=== PATIENT | male | born 1980 | race Caucasian/White ===

== ENCOUNTER 2019-02-06 16:20 | Inpatient (IN) | payer OTHER ==
[2019-02-06 17:56] VITALS: BMI 29.3
--- NOTE | 2019-02-06 19:59 | HP ---
CIWA Score - Admission Criteria OASAS Guidelines: Admission for Medically Managed Detox: Requires at least one of the followin. CIWA greater than 12 2. Seizures within the past 24 hours 3. Delirium tremens within the past 24 hours 4. Hallucinations within the past 24 hours 5. Acute intervention needed for co occurring medical disorder 6. Acute intervention needed for co occurring psychiatric disorder 7. Severe withdrawal that cannot be handled at a lower level of care (continued vomiting, continued diarrhea, abnormal vital signs) requiring intravenous medication and/or fluids 8. Admission ROS S - HPI Chief Complaint: Seeking admission to Rehab. 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 Patient reports that he was referred by his outpatient clinic physician, Dr. Cliff Archer. Patient denies past medical history and has psych. history of depression. He denies suicide attempt and suicidal ideation at this time. Patient reports that this is his first admission to [facility] and he reports prior Rehab. admission at [facility]. Patient is unemployed and lives with his and children. Exam Limitations: No Limitations - Ebola screening Have you traveled outside of the country in the last 21 days: No (N) Have you had contact with anyone from an Ebola affected area: No Do you have a fever: No - Review of Systems Constitutional: No Symptoms Reported EENT: reports: No Symptoms Reported Respiratory: reports: No Symptoms reported Cardiac: reports: No Symptoms Reported GI: reports: No Symptoms Reported : reports: No Symptoms Reported Musculoskeletal: reports: No Symptoms Reported Integumentary: reports: No Symptoms Reported Neuro: reports: No Symptoms reported Endocrine: reports: No Symptoms Reported Hematology: reports: No Symptoms Reported Psychiatric: reports: No Sypmtoms Reported, Mood/Affect Appropiate, Orientated x3 Other Systems: Reviewed and Negative Patient History - Patient Medical History Hx Anemia: No Hx Asthma: No Hx Chronic Obstructive Pulmonary Disease (COPD): No Hx Cancer: No Hx Cardiac Disorders: No Hx Congestive Heart Failure: No Hx Hypertension: No Hx Hypercholesterolemia: No HX Cerebrovascular Accident: No Hx Seizures: No Hx Dementia: No Hx Diabetes: No Hx Gastrointestinal Disorders: No Hx Liver Disease: No Hx Genitourinary Disorders: No Hx Sexually Transmitted Disorders: No Hx Renal Disease (ESRD): No Hx Thyroid Disease: No Hx Human Immunodeficiency Virus (HIV): No ( Negative April 2018) Hx Hepatitis C: No Hx Depression: Yes Hx Suicide Attempt: No (Denies suicide attempt / suicidal ideation at this time) Hx Bipolar Disorder: No Hx Schizophrenia: No - Patient Surgical History Past Surgical History: Yes Hx Neurologic Surgery: No Hx Cataract Extraction: No Hx Cardiac Surgery: No Hx Lung Surgery: No Hx Abdominal Surgery: Yes (Gastric bypass 2004) Hx Appendectomy: No Hx Cholecystectomy: No Hx Genitourinary Surgery: No Hx Orthopedic Surgery: No Anesthesia Reaction: No - PPD History Previous Implant?: No (HX OF PPD POSITIVE) Documented Results: Positive w/o proof Implanted On Prior [facility] Admission?: No PPD to be Administered?: No - Reproductive History Patient is a Female of Child Bearing Age (11 -55 yrs old): No (male) - Smoking Cessation Smoking history: Current some day smoker Have you smoked in the past 12 months: Yes Aproximately how many cigarettes per day: 3 Hx Chewing Tobacco Use: No Initiated information on smoking cessation: Yes 'Breaking Loose' booklet given: 02/06/19 - Substance & Tx. History Hx Alcohol Use: No Hx Substance Use: Yes Substance Use Type: Marijuana, Prescribed Hx Substance Use Treatment: Yes ([facility]. [facility]) - Substances abused Other Other (specify): Percocet 30mg tab Substance route: Oral Frequency: Daily Amount used: 10 tabs Age of first use: 31 Date of last use: 01/23/19 Marijuana/Hashish Substance route: Smoking Frequency: Daily Amount used: 1 joint Age of first use: 18 Date of last use: 02/02/19 Admission Physical Exam BHS - Vital Signs Vital Signs: Vital Signs - 24 hr 02/06/19 02/06/19 17:41 19:42 Temperature 98.4 F 98.4 F Pulse Rate 60 60 Respiratory 20 20 Rate Blood Pressure 110/66 110/66 - Physical General Appearance: Yes: Within Normal Limits HEENTM: Yes: Within Normal Limits Respiratory: Yes: Lungs Clear, Normal Breath Sounds, No Respiratory Distress Neck: Yes: Within Normal Limits Breast: Yes: Breast Exam Deferred Cardiology: Yes: Regular Rhythm, Regular Rate Abdominal: Yes: Normal Bowel Sounds, Soft Genitourinary: Yes: Within Normal Limits Back: Yes: Normal Inspection Musculoskeletal: Yes: Within Normal Limits Extremities: Yes: Normal Inspection Neurological: Yes: Within Normal Limits, Alert, Normal Mood/Affect Integumentary: Yes: Warm Lymphatic: Yes: Within Normal Limits - Diagnostic (1) Opioid dependence, uncomplicated Current Visit: Yes Status: Chronic (2) Nicotine dependence Current Visit: Yes Status: Chronic Qualifiers: Nicotine product type: cigarettes Substance use status: uncomplicated Qualified Code(s): F17.210 - Nicotine dependence, cigarettes, uncomplicated (3) Depression Current Visit: Yes Status: Chronic Qualifiers: Depression Type: unspecified Qualified Code(s): F32.9 - Major depressive disorder, single episode, unspecified (4) Marijuana dependence Current Visit: Yes Status: Chronic Cleared for Admission S - Detox or Rehab [facility] Level of Care: Observation Bed Claeared for Rehab Admission: Yes Breathalyzer - Breathalyzer Breathalyzer: 0 Urine Drug Screen - Test Device Lot number: [id number] Expiration date: 10/05/20 - Control Is test valid?: Yes - Results Drug screen NEGATIVE: No Urine drug screen results: THC-Marijuana, BUP-Suboxone Inpatient Rehab Admission - Rehab Decision to Admit Inpatient rehab admission?: Yes - Initial Determination Are CD services needed?: No Free of communicable disease: Yes Not in need of hospitalization: Yes - Rehab Admission Criteria Previous failed treatment: Yes Poor recovery environment: Yes Comorbidities: Yes Lacks judgement: No Patient is meeting Inpatient Rehab admission criteria:: Yes
[2019-02-06] MEDS ORDERED: ACETAMINOPHEN 325 MG TABLET (FP) PO PRN (20:18)
[2019-02-06] MEDS ORDERED: MENTHOL/PHENOL 1 EACH UD MM PRN (20:18)
[2019-02-06] MEDS ORDERED: LOPERAMIDE HCL 2 MG CAPSULE PO PRN (20:18)
[2019-02-06] MEDS ORDERED: guaiFENesin 200 MG/10 ML 10 ML UNIT-DOSE CUPS PO PRN (20:18)
[2019-02-06] MEDS ORDERED: MAG HYDROX/AL HYDROX/SIMETH 30 ML UNIT-DOSE CUP PO PRN (20:18)
[2019-02-06] MEDS ORDERED: P-EPHED 60MG/TRIPROLIDI 2.5MG TABLET PO PRN (20:18)
[2019-02-06] MEDS ORDERED: MAGNESIUM CITRATE 300 ML BOTTLE PO PRN (20:18)
[2019-02-06] MEDS ORDERED: NICOTINE POLACRILEX 2 MG GUM BUC PRN (20:18)
[2019-02-06] MEDS: THIAMINE HCL 100 MG TABLET (FP) PO SCH (21:42)
[2019-02-06] MEDS: BUPRENORPHINE/NALOXONE 8 MG/2 MG FILM PACKET SL SCH (21:43)
[2019-02-06] MEDS ORDERED: MELATONIN 5 MG TABLETS PO PRN (22:00)
[2019-02-07] MEDS: BUPRENORPHINE/NALOXONE 8 MG/2 MG FILM PACKET SL SCH ×3 (06:48→21:22)
[2019-02-07] MEDS: PRENATAL VITAMINS W/ FOLIC ACID TABLET (FP) PO SCH (09:43)
[2019-02-07] MEDS: NICOTINE 14 MG/24 HOURS TOPICAL PATCH TD SCH (09:43)
--- NOTE | 2019-02-07 10:00 | PN ---
[facility] Progress Note Note: Pt is a 38 y/o male with a hx of street percocet and marijuana use disorder and on Suboxone-MAT admitted to rehab. Pt reports was referred from his suboxone doctor dr. Cliff Archer/clinic at [place] [address] [address] [place] [address]/[place], [place] . Denies PMhx but has Psych hx of Depression and on Lexapro and remeron. Pt reports he has a primary care doctor, Dr. Chung on [facility] for medical management. Vital Signs - 24 hr 02/06/19 02/06/19 02/06/19 17:41 19:42 21:30 Temperature 98.4 F 98.4 F 98.1 F Pulse Rate 60 60 49 L Respiratory 20 20 17 Rate Blood Pressure 110/66 110/66 113/71 02/07/19 02/07/19 02/07/19 00:30 03:30 06:51 Temperature 97.9 F Pulse Rate 54 L Respiratory 18 16 18 Rate Blood Pressure 124/81 labs drawn and results pending. A/P New rehab patient Suboxone-MAT Maintain safety follow up with psych consult as ordered.
[2019-02-07 10:15] LABS: ALBUMIN 3.2 g/dl (3.4-5.0); BILIRUBIN,TOTAL 0.5 mg/dL (0.2-1); BLOOD UREA NITROGEN 11.7 mg/dL (7-18); CALCIUM 8.4 mg/dL (8.5-10.1); CREATININE 0.7 mg/dL (0.55-1.3); HEMATOCRIT 32.6 % (35.4-49); HEMOGLOBIN 9.8 GM/dL (11.7-16.9); MCH 20.8 pg (25.7-33.7); MEAN CELL VOLUME 69.3 fl (80-96); MEAN PLT VOLUME 8.9 fl (7.5-11.1); PLATELET COUNT 211 K/MM3 (134-434); POTASSIUM 4.1 mmol/L (3.5-5.1); RDW 16.5 % (11.9-15.9); WHITE BLOOD COUNT 4.3 K/mm3 (4.0-10.0)
--- NOTE | 2019-02-07 11:22 | CONSULT ---
[facility] Psychiatric Consult - Data Date of interview: 02/07/19 Admission source: Dr Cliff Archer from program"[facility]" Identifying data: Mr Brice is a 38 years old male, father of 2 children, unemployed with no source of income, living with and children admitted to this unit on 02/06/19 for inpatient rehabilitation for opioid and cannabis Substance Abuse History: Reports history of percocet and marijuana use. Refer to addiction counselor's summary for further information Medical History: Significant for PPD+ and history of gaastric bypass and orthosurgery for dislocation of right ankle. Smokes 3 cigarettes daily Psychiatric History: Reports that his first psychiatric contact was in his mid 20's when he saw a psychiatrist for depression. Claims that he was treated with only psychotherapy for approximately a year. Reports that his next psychiatric treatment started 9 months ago while at his current outpatient substance abuse program"[facility]", he saw Dr Cliff Archer who diagnosed him with MDD and started on Lexapro and Remeron. He is currently on Lexapro 20 mg/day and Remeron 15 mg/hs. Denies previous psychiatric hospitalization or suicidal attempt. At present, denies experiencing depressive symptoms, S/H ideations. However, reports sleeping poorly. Requests to continue both Lexapro and Remeron as currently prescribed Physical/Sexual Abuse/Trauma History: Denies history of abuse as a child or DV relationship as an adult Mental Status Exam - Mental Status Exam Alert and Oriented to: Time, Place, Person Cognitive Function: Fair Patient Appearance: Well Groomed Mood: Hopeful, Euthymic Affect: Appropriate Patient Behavior: Cooperative Speech Pattern: Clear Voice Loudness: Normal Thought Process: Intact, Goal Oriented Hallucinations: Denies Suicidal Ideation: Denies Homicidal Ideation: Denies Insight/Judgement: Fair Sleep: Poorly Appetite: Fair Muscle strength/Tone: Normal Gait/Station: Normal Psychiatric Findings - Problem List ([place] 1, 2,3) (1) Depressive disorder Current Visit: Yes Status: Chronic (2) MDD (major depressive disorder) Current Visit: Yes Status: Ruled-out (3) Substance-induced sleep disorder Current Visit: Yes Status: Acute (4) Opioid dependence Current Visit: Yes Status: Acute (5) Cannabis abuse Current Visit: Yes Status: Acute (6) Nicotine dependence Current Visit: Yes Status: Chronic Qualifiers: Nicotine product type: cigarettes Substance use status: uncomplicated Qualified Code(s): F17.210 - Nicotine dependence, cigarettes, uncomplicated (7) PPD positive Current Visit: Yes Status: Chronic (8) History of gastric bypass Current Visit: Yes Status: Resolved - Initial Treatment Plan Initial Treatment Plan: 1) Continue Lexapro 20 mg po daily and Remeron 15 mg po HS. 2) Continue inpatient rehabilitation
[2019-02-07] MEDS: ESCITALOPRAM OXALATE 20 MG TABLET PO SCH (12:06)
--- NOTE | 2019-02-07 13:27 | EKG ---
Test Reason : Blood Pressure : / mmHG Vent. Rate : 048 BPM Atrial Rate : 048 BPM P-R Int : 158 ms QRS Dur : 104 ms QT Int : 476 ms P-R-T Axes : 063 000 011 degrees QTc Int : 425 ms SINUS BRADYCARDIA OTHERWISE NORMAL ECG NO PREVIOUS ECGS AVAILABLE Confirmed by MONICA TREVINO MD ([id number]) on 02/07/2019 1:27:04 PM Referred By: Samuel Valadez Confirmed By:MONICA TREVINO MD
[2019-02-07 17:51] LABS: PH,URINE 6.5 (5.0-8.0); URINE APPEARANCE CLEAR; URINE BILIRUBIN NEGATIVE (NEGATIVE); URINE COLOR YELLOW; URINE GLUCOSE (UA) NEGATIVE (NEGATIVE); URINE KETONE TRACE (NEGATIVE); URINE LEUK ESTERASE NEGATIVE (NEGATIVE); URINE NITRITE NEGATIVE (NEGATIVE); URINE PROTEIN NEGATIVE (NEGATIVE)
[2019-02-07] MEDS: MIRTAZAPINE 15 MG TABLET (FP) PO SCH (21:20)
[2019-02-07] MEDS: THIAMINE HCL 100 MG TABLET (FP) PO SCH (21:20)
[2019-02-08] MEDS: BUPRENORPHINE/NALOXONE 8 MG/2 MG FILM PACKET SL SCH ×3 (06:36→21:15)
[2019-02-08] MEDS: ESCITALOPRAM OXALATE 20 MG TABLET PO SCH (10:58)
[2019-02-08] MEDS: PRENATAL VITAMINS W/ FOLIC ACID TABLET (FP) PO SCH (10:58)
[2019-02-08] MEDS: NICOTINE 14 MG/24 HOURS TOPICAL PATCH TD SCH (10:59)
[2019-02-08] MEDS: THIAMINE HCL 100 MG TABLET (FP) PO SCH (21:15)
[2019-02-08] MEDS: MIRTAZAPINE 15 MG TABLET (FP) PO SCH (21:15)
[2019-02-09] MEDS: BUPRENORPHINE/NALOXONE 8 MG/2 MG FILM PACKET SL SCH ×3 (06:23→21:23)
[2019-02-09] MEDS: NICOTINE 14 MG/24 HOURS TOPICAL PATCH TD SCH (10:14)
[2019-02-09] MEDS: ESCITALOPRAM OXALATE 20 MG TABLET PO SCH (10:14)
[2019-02-09] MEDS: PRENATAL VITAMINS W/ FOLIC ACID TABLET (FP) PO SCH (10:14)
[2019-02-09] MEDS: MIRTAZAPINE 15 MG TABLET (FP) PO SCH (21:23)
[2019-02-09] MEDS: THIAMINE HCL 100 MG TABLET (FP) PO SCH (21:23)
[2019-02-10] MEDS: BUPRENORPHINE/NALOXONE 8 MG/2 MG FILM PACKET SL SCH ×3 (06:12→21:52)
[2019-02-10] MEDS: PRENATAL VITAMINS W/ FOLIC ACID TABLET (FP) PO SCH (10:25)
[2019-02-10] MEDS: ESCITALOPRAM OXALATE 20 MG TABLET PO SCH (10:25)
[2019-02-10] MEDS: NICOTINE 14 MG/24 HOURS TOPICAL PATCH TD SCH (10:25)
[2019-02-10] MEDS: THIAMINE HCL 100 MG TABLET (FP) PO SCH (21:51)
[2019-02-10] MEDS: IBUPROFEN 400 MG TABLET (FP) PO PRN (21:51)
[2019-02-10] MEDS: MIRTAZAPINE 15 MG TABLET (FP) PO SCH (21:51)
[2019-02-11] MEDS: IBUPROFEN 400 MG TABLET (FP) PO PRN ×2 (06:36→21:43)
[2019-02-11] MEDS: BUPRENORPHINE/NALOXONE 8 MG/2 MG FILM PACKET SL SCH ×3 (06:36→21:42)
[2019-02-11] MEDS: ESCITALOPRAM OXALATE 20 MG TABLET PO SCH (10:17)
[2019-02-11] MEDS: PRENATAL VITAMINS W/ FOLIC ACID TABLET (FP) PO SCH (10:17)
[2019-02-11] MEDS: NICOTINE 14 MG/24 HOURS TOPICAL PATCH TD SCH (10:17)
[2019-02-11] MEDS: THIAMINE HCL 100 MG TABLET (FP) PO SCH (21:42)
[2019-02-11] MEDS: MIRTAZAPINE 15 MG TABLET (FP) PO SCH (21:42)
[2019-02-12] MEDS: BUPRENORPHINE/NALOXONE 8 MG/2 MG FILM PACKET SL SCH ×3 (06:20→21:51)
[2019-02-12] MEDS: IBUPROFEN 400 MG TABLET (FP) PO PRN ×3 (06:20→21:51)
[2019-02-12] MEDS: PRENATAL VITAMINS W/ FOLIC ACID TABLET (FP) PO SCH (10:44)
[2019-02-12] MEDS: NICOTINE 14 MG/24 HOURS TOPICAL PATCH TD SCH (10:44)
[2019-02-12] MEDS: ESCITALOPRAM OXALATE 20 MG TABLET PO SCH (10:44)
[2019-02-12] MEDS: MIRTAZAPINE 15 MG TABLET (FP) PO SCH (21:50)
[2019-02-12] MEDS: THIAMINE HCL 100 MG TABLET (FP) PO SCH (21:50)
[2019-02-13] MEDS: IBUPROFEN 400 MG TABLET (FP) PO PRN ×3 (06:10→21:34)
[2019-02-13] MEDS: BUPRENORPHINE/NALOXONE 8 MG/2 MG FILM PACKET SL SCH ×3 (06:10→21:33)
[2019-02-13] MEDS: PRENATAL VITAMINS W/ FOLIC ACID TABLET (FP) PO SCH (10:32)
[2019-02-13] MEDS: NICOTINE 14 MG/24 HOURS TOPICAL PATCH TD SCH (10:32)
[2019-02-13] MEDS: ESCITALOPRAM OXALATE 20 MG TABLET PO SCH (10:32)
[2019-02-13] MEDS: THIAMINE HCL 100 MG TABLET (FP) PO SCH (21:33)
[2019-02-13] MEDS: MIRTAZAPINE 15 MG TABLET (FP) PO SCH (21:33)
[2019-02-14] MEDS: BUPRENORPHINE/NALOXONE 8 MG/2 MG FILM PACKET SL SCH ×3 (06:33→21:47)
[2019-02-14] MEDS: NICOTINE 14 MG/24 HOURS TOPICAL PATCH TD SCH (10:38)
[2019-02-14] MEDS: ESCITALOPRAM OXALATE 20 MG TABLET PO SCH (10:38)
[2019-02-14] MEDS: PRENATAL VITAMINS W/ FOLIC ACID TABLET (FP) PO SCH (10:38)
[2019-02-14] MEDS: IBUPROFEN 400 MG TABLET (FP) PO PRN ×2 (10:39→21:46)
[2019-02-14] MEDS: THIAMINE HCL 100 MG TABLET (FP) PO SCH (21:47)
[2019-02-14] MEDS: MIRTAZAPINE 15 MG TABLET (FP) PO SCH (21:47)
[2019-02-15] MEDS: BUPRENORPHINE/NALOXONE 8 MG/2 MG FILM PACKET SL SCH ×3 (06:51→21:41)
[2019-02-15] MEDS: PRENATAL VITAMINS W/ FOLIC ACID TABLET (FP) PO SCH (10:22)
[2019-02-15] MEDS: ESCITALOPRAM OXALATE 20 MG TABLET PO SCH (10:22)
[2019-02-15] MEDS: NICOTINE 14 MG/24 HOURS TOPICAL PATCH TD SCH (10:22)
[2019-02-15] MEDS: THIAMINE HCL 100 MG TABLET (FP) PO SCH (21:39)
[2019-02-15] MEDS: MIRTAZAPINE 15 MG TABLET (FP) PO SCH (21:39)
[2019-02-15] MEDS: IBUPROFEN 400 MG TABLET (FP) PO PRN (21:41)
[2019-02-16] MEDS: BUPRENORPHINE/NALOXONE 8 MG/2 MG FILM PACKET SL SCH ×3 (06:30→21:49)
[2019-02-16] MEDS: ESCITALOPRAM OXALATE 20 MG TABLET PO SCH (10:16)
[2019-02-16] MEDS: PRENATAL VITAMINS W/ FOLIC ACID TABLET (FP) PO SCH (10:16)
[2019-02-16] MEDS: NICOTINE 14 MG/24 HOURS TOPICAL PATCH TD SCH (10:17)
[2019-02-16] MEDS: MIRTAZAPINE 15 MG TABLET (FP) PO SCH (21:48)
[2019-02-16] MEDS: THIAMINE HCL 100 MG TABLET (FP) PO SCH (21:48)
[2019-02-17] MEDS: BUPRENORPHINE/NALOXONE 8 MG/2 MG FILM PACKET SL SCH ×3 (06:33→21:36)
[2019-02-17] MEDS: PRENATAL VITAMINS W/ FOLIC ACID TABLET (FP) PO SCH (11:20)
[2019-02-17] MEDS: NICOTINE 14 MG/24 HOURS TOPICAL PATCH TD SCH (11:20)
[2019-02-17] MEDS: ESCITALOPRAM OXALATE 20 MG TABLET PO SCH (11:20)
[2019-02-17] MEDS: MIRTAZAPINE 15 MG TABLET (FP) PO SCH (21:35)
[2019-02-17] MEDS: THIAMINE HCL 100 MG TABLET (FP) PO SCH (21:35)
[2019-02-18] MEDS: BUPRENORPHINE/NALOXONE 8 MG/2 MG FILM PACKET SL SCH ×3 (06:25→21:48)
[2019-02-18] MEDS: ESCITALOPRAM OXALATE 20 MG TABLET PO SCH (10:39)
[2019-02-18] MEDS: NICOTINE 14 MG/24 HOURS TOPICAL PATCH TD SCH (10:39)
[2019-02-18] MEDS: PRENATAL VITAMINS W/ FOLIC ACID TABLET (FP) PO SCH (10:39)
[2019-02-18] MEDS: MIRTAZAPINE 15 MG TABLET (FP) PO SCH (21:46)
[2019-02-18] MEDS: THIAMINE HCL 100 MG TABLET (FP) PO SCH (21:47)
[2019-02-18] MEDS: MAGNESIUM HYDROX 2400MG/30ML ORAL SUSPENSION 30 ML CUP PO PRN (21:48)
[2019-02-19] MEDS: BUPRENORPHINE/NALOXONE 8 MG/2 MG FILM PACKET SL SCH ×3 (06:12→21:55)
[2019-02-19 07:01] VITALS: TEMP 97.8
[2019-02-19] MEDS: ESCITALOPRAM OXALATE 20 MG TABLET PO SCH (11:14)
[2019-02-19] MEDS: NICOTINE 14 MG/24 HOURS TOPICAL PATCH TD SCH (11:14)
[2019-02-19] MEDS: PRENATAL VITAMINS W/ FOLIC ACID TABLET (FP) PO SCH (11:14)
[2019-02-19] MEDS: MAGNESIUM HYDROX 2400MG/30ML ORAL SUSPENSION 30 ML CUP PO PRN (11:16)
--- NOTE | 2019-02-19 13:14 | PN ---
[facility] Progress Note Note: Patient is scheduled for discharge tomorrow. Scripts for 30 days supply of medications(Lexapro 20 mg/day, Remeron 15 mg/hs) will be electronically transmitted to [facility] at [address] [place], [place] [id number]
[2019-02-19] MEDS: FERROUS SO4 325 MG TABLET (FP) PO SCH (17:37)
[2019-02-19] MEDS: MIRTAZAPINE 15 MG TABLET (FP) PO SCH (21:55)
[2019-02-19] MEDS: THIAMINE HCL 100 MG TABLET (FP) PO SCH (21:55)
[2019-02-20] MEDS: BUPRENORPHINE/NALOXONE 8 MG/2 MG FILM PACKET SL SCH (06:35)
[2019-02-20 07:14] VITALS: BP 108/68; PULSE 64
[2019-02-20] MEDS: FERROUS SO4 325 MG TABLET (FP) PO SCH (07:52)
[2019-02-20] MEDS: PRENATAL VITAMINS W/ FOLIC ACID TABLET (FP) PO SCH (09:27)
[2019-02-20] MEDS: ESCITALOPRAM OXALATE 20 MG TABLET PO SCH (09:27)
[2019-02-20] MEDS: NICOTINE 14 MG/24 HOURS TOPICAL PATCH TD SCH (09:28)
--- NOTE | 2019-02-20 09:49 | DS ---
[facility] Rehab Discharge Summary - [facility] Rehab Discharge Summary Admission Date: 02/06/19 Discharge Date: 02/20/19 - History Present History: Cannabis dependence, Opioid dependence Additional Comments: Pt is a 38 y/o male with a hx of Opioid use disorder admitted to rehab and scheduled to discharge today. Pt reports he has a PCP Dr. Chung on [facility]/[place], [place]. Pt will follow up with his Suboxone prescriber Dr Cliff Archer at [address] on /[place] -[address] [place] [address] for continued MAT treatment/CD aftercare. Pertinent Past History: Anemia Gastric bypass Depression - Discharge Physical Exam Vital Signs: Vital Signs Temperature 97.8 F 02/20/19 07:13 Pulse Rate 64 02/20/19 07:13 Respiratory Rate 18 02/20/19 07:13 Blood Pressure 108/68 02/20/19 07:13 O2 Sat by Pulse Oximetry (%) Pertinent Admission Physical Exam Findings: Laboratory Tests 02/07/19 02/07/19 02/07/19 07:40 07:40 07:40 WBC 4.3 RBC 4.70 Hgb 9.8 L Hct 32.6 L MCV 69.3 L MCH 20.8 L MCHC 30.0 L RDW 16.5 H Plt Count 211 MPV 8.9 Sodium 141 Potassium 4.1 Chloride 107 Carbon Dioxide 32 Anion Gap 2 L BUN 11.7 Creatinine 0.7 Est GFR (CKD-EPI)AfAm 139.73 Est GFR (CKD-EPI)NonAf 120.56 Random Glucose 89 Calcium 8.4 L Total Bilirubin 0.5 AST 23 ALT 24 Alkaline Phosphatase 70 Total Protein 6.0 L Albumin 3.2 L Urine Color Urine Appearance Urine pH Ur Specific [place] Urine Protein Urine Glucose (UA) Urine Ketones Urine Blood Urine Nitrite Urine Bilirubin Urine Urobilinogen Ur Leukocyte Esterase RPR Titer Nonreactive 02/07/19 13:30 WBC RBC Hgb Hct MCV MCH MCHC RDW Plt Count MPV Sodium Potassium Chloride Carbon Dioxide Anion Gap BUN Creatinine Est GFR (CKD-EPI)AfAm Est GFR (CKD-EPI)NonAf Random Glucose Calcium Total Bilirubin AST ALT Alkaline Phosphatase Total Protein Albumin Urine Color Yellow Urine Appearance Clear Urine pH 6.5 Ur Specific [place] 1.029 Urine Protein Negative Urine Glucose (UA) Negative Urine Ketones Trace H Urine Blood Negative Urine Nitrite Negative Urine Bilirubin Negative Urine Urobilinogen 1.0 Ur Leukocyte Esterase Negative RPR Titer - Treatment Discharge Condition: Discharge condition good Hospital Course: Rehabilitated safely and responded well Participated in groups and individual counseling sessions. - Medication Discharge Medications: Ambulatory Orders Buprenorphine/Naloxone [Suboxone 8Mg/2Mg Sl Film -] 1 each SL TID 02/06/19 Escitalopram Oxalate [Lexapro -] 20 mg PO DAILY #30 tablet 02/19/19 Mirtazapine [Remeron -] 15 mg PO HS #30 tablet 02/19/19 Buprenorphine/Naloxone [Suboxone 8Mg/2Mg Sl Film -] 1 each SL TID #21 packet MDD 3 02/20/19 Ferrous Sulfate [Feosol] 325 mg PO BID #30 tablet 02/20/19 Naloxone HCl [Narcan] 4 mg NS ONCE #1 spray 02/20/19 - Medication-Assisted Treatment (MAT) Medication-Assisted Treatment (MAT): Yes MAT Follow-up Referral: [address] Ernesto Archer - Discharge Instructions Diet, activity, other medical instructions: Diet:regular Activity: oob ad oskar Other medical instructions:follow up with PCP Dr. Chung for medical management within 1 week after discharge. follow up with CD aftercare/ Suboxone-MAT at [place] [address] Clinic as scheduled. - Diagnosis (1) Anemia Current Visit: Yes Status: Chronic Qualifiers: Anemia type: iron deficiency (2) Cannabis abuse Current Visit: Yes Status: Chronic (3) Opioid dependence Current Visit: Yes Status: Chronic Qualifiers: Substance use status: uncomplicated Qualified Code(s): F11.20 - Opioid dependence, uncomplicated (4) History of gastric bypass Current Visit: Yes Status: Resolved - Follow-up Referral Minutes to complete discharge: 20 - AMA Did Patient Leave Against Medical Advice: No Additional Comments: Suboxone 8mg sl TID x 7days as well as feosol 325 mg po BID #30 electronically sent to pt's home 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 Pt will follow up with his Suboxone prescriber/clinic on Sunday02/25/19.
== END 2019-02-20 10:10 | disposition home or self-care (01) | DRG 772 ==
LOC: YASAS 16:20 → Y5N 21:10
PROVIDERS: ADMIT Neuromusculoskeletal Medicine & OMM; ATTEND Neuromusculoskeletal Medicine & OMM
PROC: HZ42ZZZ Group Counseling for Substance Abuse Treatment, Cognitive-Behavioral (ICD-10-PCS; principal; 2019-02-06)
DX: F11.20 Opioid dependence, uncomplicated (principal); F12.20 Cannabis dependence, uncomplicated; F17.210 Nicotine dependence, cigarettes, uncomplicated; F19.24 Other psychoactive substance dependence with psychoactive substance-induced mood disorder; F32.9 Major depressive disorder, single episode, unspecified; D50.9 Iron deficiency anemia, unspecified; R76.11 Nonspecific reaction to tuberculin skin test without active tuberculosis; Z98.84 Bariatric surgery status
CPT/HCPCS: 36415; 71046-TC-FY; 80053; 81003; 85027; 86593; 93005; 93010